=== PATIENT | female | born 1950 | race Caucasian/White ===

== ENCOUNTER 2021-04-16 18:28 | Inpatient (IN) | payer MEDICARE, OTHER ==
[~2021-04-16] VITALS: Ht 180.3 cm; Wt 112.0 kg
[2021-04-17 12:29] VITALS: BP 150/81
[2021-04-17] MEDS ORDERED: NYST15PO4 TP (12:37)
[2021-04-17] MEDS ORDERED: FURO-144 PO (12:37)
[2021-04-17] MEDS ORDERED: TOPI50TA24 PO (12:37)
[2021-04-17] MEDS ORDERED: LISI40TA13 PO (12:37)
[2021-04-17] MEDS ORDERED: RISP1TAB97 PO (12:37)
[2021-04-17] MEDS ORDERED: TEMA15CA PO (12:37)
[2021-04-17] MEDS ORDERED: FLUC150T PO (12:37)
[2021-04-17] MEDS ORDERED: POTA20TA83 PO (12:37)
[2021-04-17] MEDS ORDERED: OMEP20CA15 PO (12:37)
[2021-04-17] MEDS ORDERED: SIMV-46 PO (12:37)
[2021-04-17] MEDS ORDERED: WARF4TAB72 PO (12:37)
[2021-04-17] MEDS ORDERED: TRAM50TA2 PO (12:37)
[2021-04-17] MEDS ORDERED: WARF3TAB59 PO (12:37)
[2021-04-17] MEDS ORDERED: AMOX-430 PO (12:37)
[2021-04-17] MEDS ORDERED: MAGNESIUM HYDROXIDE 30 ML UDC PO PRN (13:00)
[2021-04-17] MEDS ORDERED: clonazePAM 0.5 MG TABLET PO PRN (13:00)
[2021-04-17] MEDS ORDERED: BLOOD SUGAR DIAGNOSTIC 1 EACH STRIP IN ONE (13:00)
[2021-04-17] MEDS ORDERED: MAG HYDROX/AL HYDROX/SIMETH 30 ML UDC PO PRN (13:00)
--- NOTE | 2021-04-17 13:00 | NUR ---
GPS/RN RECEIVED PT DIRECT ADMIT FROM [facility] ON 5150 FOR DTO. ORIGINALLY FOUND ON THE STREET. PT AMBULATES ON WHEEL CHAIR AND WEARING SPECIAL BOOT D/T RT ANKLE FX. PT DENIED SKIN BREAKDOWN BUT REFUSED SKIN ASSESSMENT. ON FACE TO FACE ASSESSMENT NO SI OR HI REPORTED. ADMITTING ORDERS FROM DR CROOKS RECEIVED AND CARRIED OUT. DR LOVE NOTIFIED OF ADMISSION VIA [employer]. NEW ORDERS FROM DR SANTOYO RECEIVED. PROPERTY CHECKED FOR CONTRABAND.
[2021-04-17 14:41] LABS: BILIRUBIN,TOTAL 0.2 mg/dL (0.2-1.0)
[2021-04-17 14:42] LABS: ALBUMIN 3.5 g/dL (3.4-5.0); CALCIUM, SERUM 8.7 mg/dL (8.5-10.1); POTASSIUM 3.9 mmol/L (3.5-5.1); TOTAL PROTEIN, SERUM 7.6 g/dL (6.4-8.2)
[2021-04-17 16:00] VITALS: BP 125/62
[2021-04-17] MEDS ORDERED: NYSTATIN TOP POWDER 15 GM BOTTLE TP PRN (17:00)
[2021-04-17] MEDS ORDERED: WARFARIN SODIUM 4 MG PO SCH (17:00)
[2021-04-17] MEDS ORDERED: WARFARIN SODIUM 2 MG TABLET PO ONE (18:00)
[2021-04-17] MEDS ORDERED: WARFARIN SODIUM 1 MG TABLET PO SCH (18:00)
[2021-04-17] MEDS: ACETAMINOPHEN 325 MG TABLET PO PRN (19:52)
[2021-04-17 20:15] VITALS: BP 130/92
[2021-04-17] MEDS: TEMAZEPAM 7.5 MG CAPSULE PO PRN (21:04)
[2021-04-17] MEDS: SIMVASTATIN 20 MG TABLET PO SCH (21:09)
[2021-04-18] MEDS: TRAMADOL HCL 50 MG TABLET PO PRN ×2 (00:47→11:59)
[2021-04-18] MEDS: ACETAMINOPHEN 325 MG TABLET PO PRN ×2 (04:12→16:36)
--- NOTE | 2021-04-18 05:55 | NUR ---
GPS HYDRO TECHNICIAN Note: Pt pleasant and compliant with her meds, cooperative, no signs of acute distress noted- intermittent sleep during shift- PRN pain meds given for c/o chronic R.Ankle/Knee pain- Tylenol (411) Ultram (46) ,and Restoril for insomnia given @2103-approx total of 5 hrs sleep, pt refused for head to toe skin assessment- verbalized she does not have any skin issue - aside for R.ankle/R knee - pain from previous surgery - needing foot brace on while ambulating- R. ankle is wrapped with papa bandage - pt refused to have it checked and remove bandage at this time- per Pt she will do it later in morning during shower. VSS , able to ambulate with aid of wheel chair and walker, all needs attended, and anticipated- continue to monitor pt's safety.
[2021-04-18 07:41] LABS: CHOLESTEROL 190 mg/dL (<200); HDL CHOLESTEROL 51 mg/dL (40-60); LDL 105 mg/dL (0-99); TRIGLYCERIDES 189 mg/dL (30-150)
[2021-04-18 08:00] VITALS: BP 115/67
[2021-04-18] MEDS: FUROSEMIDE 40 MG TABLET PO SCH (08:49)
[2021-04-18] MEDS: PANTOPRAZOLE 40 MG TABLET.DR PO SCH (08:49)
[2021-04-18] MEDS: POTASSIUM CHLORIDE 20 MEQ TAB.PRT.SR PO SCH (08:49)
[2021-04-18] MEDS: LISINOPRIL (20MG) 20 MG TABLET PO SCH (08:50)
[2021-04-18] MEDS: BENZTROPINE MESYLATE (1 MG) 1 MG TABLET PO SCH ×2 (09:00→16:36)
[2021-04-18] MEDS ORDERED: TOPIRAMATE 25 MG TABLET PO SCH (09:00)
[2021-04-18] MEDS ORDERED: FLUCONAZOLE 150 MG PO SCH (09:00)
[2021-04-18] MEDS: risperiDONE 1 MG TABLET PO SCH ×2 (11:59→16:32)
[2021-04-18] MEDS: TOPIRAMATE 25 MG TABLET PO SCH ×2 (12:00→21:44)
[2021-04-18 16:00] VITALS: BP 122/68
[2021-04-18] MEDS: WARFARIN SODIUM 1 MG TABLET PO SCH (16:34)
[2021-04-18 20:36] VITALS: BP 109/75
[2021-04-18 20:38] VITALS: BP 109/75
[2021-04-18] MEDS: SIMVASTATIN 20 MG TABLET PO SCH (21:45)
[2021-04-18] MEDS: TEMAZEPAM 7.5 MG CAPSULE PO PRN (21:59)
--- NOTE | 2021-04-18 22:01 | NUR ---
RN NOTE: INSOMNIA PATIENT STATED," I CAN'T SLEEP, I NEED MY SLEEPING PILL, I TAKE IT AT 1930 DAILY." PATIENT INSISTED ON TAKING SLEEPING MEDICINE AT THIS TIME. RESTORIL PRN 15 MG PO ADMINISTERED. WILL CONTINUE TO MONITOR.
--- NOTE | 2021-04-18 23:55 | NUR ---
RN NOTE PATIENT IS SLEEPING INTERMITTENTLY, PREFERS TO BE IN HER WHEELCHAIR MOST OF THE TIME. WHEN REMINDED THE PATIENT TO GO TO BED SINCE PATIENT WAS IN HER WHEELCHAIR FOR ABOUT 3 HOURS, PATIENT GOT AGITATED, LOUD, STARTED YELLING AT NURSE, USED INAPPROPRIATE LANGUAGE, STATED," I AM , I HAD OVER 120 CHILDREN BY A PHARMACIST WHO USED TO SELL STEM CELLS, HE SOLD STEM CELLS TO KAMAR LOAIZA & NATALY DURHAM. KAMAR LOAIZA WANTS MY KIDNEY, I WON'T GIVE MY ONLY KIDNEY TO ANYONE." PATIENT ALSO VERBALIZED," I HAVE PARANOIA." WHEN A FEMALE RN APPROACHED TO CALM THE PATIENT DOWN, PATIENT BECAME MORE AGITATED. THEN A MALE RN APPROACHED THE PATIENT & PATIENT DID CALM DOWN & STARTED SMILING, TALKATIVE TO THE MALE NURSE. SNACKS & FLUIDS WERE OFFERED & PATIENT TOLERATED WELL. PATIENT STILL PREFERRED TO STAY IN HER WHEELCHAIR & REFUSED TO GO TO BED BUT IS CALM & RELAXED AT THIS TIME. PATIENT REFUSED TO TAKE ANY6 MEDICATION WHEN ANTIANXIETY WAS OFFERED. WILL CONTINUE TO MONITOR.
[2021-04-19] MEDS: ACETAMINOPHEN 325 MG TABLET PO PRN ×2 (02:34→13:09)
--- NOTE | 2021-04-19 02:36 | NUR ---
RN NOTE: PAIN PATIENT C/O RIGHT ANKLE PAIN 10/08 & REQUESTED TO TAKE TYLENOL. PRN TYLENOL 650 MG PO ADMINISTERED.
[2021-04-19 08:00] VITALS: BP 147/60
[2021-04-19] MEDS: risperiDONE 1 MG TABLET PO SCH ×2 (08:04→17:06)
[2021-04-19] MEDS: TRAMADOL HCL 50 MG TABLET PO PRN (08:04)
[2021-04-19] MEDS: FUROSEMIDE 40 MG TABLET PO SCH (08:04)
[2021-04-19] MEDS: PANTOPRAZOLE 40 MG TABLET.DR PO SCH (08:04)
[2021-04-19] MEDS: LISINOPRIL (20MG) 20 MG TABLET PO SCH (08:04)
[2021-04-19] MEDS: POTASSIUM CHLORIDE 20 MEQ TAB.PRT.SR PO SCH (08:04)
[2021-04-19] MEDS: BENZTROPINE MESYLATE (1 MG) 1 MG TABLET PO SCH ×2 (08:05→17:00)
[2021-04-19] MEDS: TOPIRAMATE 25 MG TABLET PO SCH ×2 (08:10→21:20)
[2021-04-19 16:00] VITALS: BP 130/62
[2021-04-19] MEDS: WARFARIN SODIUM 1 MG TABLET PO SCH (17:07)
[2021-04-19 20:00] VITALS: BP 118/52
[2021-04-19] MEDS: SIMVASTATIN 20 MG TABLET PO SCH (21:20)
[2021-04-19] MEDS: TEMAZEPAM 7.5 MG CAPSULE PO PRN (21:25)
--- NOTE | 2021-04-19 21:28 | NUR ---
GPS RN NOTES: PATIENT REQUESTED SLEEP MEDICATION. RESTORIL 15MG GIVEN PO AT 2124. WILL CONTINUE TO MONITOR.
[2021-04-20] MEDS: ACETAMINOPHEN 325 MG TABLET PO PRN ×2 (01:24→23:42)
--- NOTE | 2021-04-20 01:28 | NUR ---
GPS RN NOTES: TYLENOL 650MG GIVEN PO AT 0124 FOR BACK PAIN. WILL CONTINUE TO MONITOR.
[2021-04-20 08:00] VITALS: BP 135/66
[2021-04-20] MEDS: PANTOPRAZOLE 40 MG TABLET.DR PO SCH (08:48)
[2021-04-20] MEDS: risperiDONE 1 MG TABLET PO SCH ×3 (08:55→16:27)
[2021-04-20] MEDS: TOPIRAMATE 25 MG TABLET PO SCH ×2 (08:55→20:50)
[2021-04-20] MEDS: POTASSIUM CHLORIDE 20 MEQ TAB.PRT.SR PO SCH (08:56)
[2021-04-20] MEDS: FUROSEMIDE 40 MG TABLET PO SCH (08:56)
[2021-04-20] MEDS: BENZTROPINE MESYLATE (1 MG) 1 MG TABLET PO SCH ×3 (08:56→16:25)
[2021-04-20] MEDS: LISINOPRIL (20MG) 20 MG TABLET PO SCH (09:03)
--- NOTE | 2021-04-20 09:04 | NUR ---
RN NOTE: MEDICATION REFUSAL PT REFUSED 0.5-1.5 RISPERDAL AND COGENTIN. STATES SHE HAS NOT BEEN TAKING THESE MEDICATIONS BECAUSE SHE HAS BEEN WITH 100 BABIES OF NATALY MARVA AND KAMAR LOAIZA. STATES SHE WILL NOT TAKE THESE MEDICATIONS WITHOUT THE DR. DISCUSSING IT WITH HER. 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 ATTEMPTED TO EDUCATE PT RE IMPORTANCE OF MEDICATION COMPLIANCE. PT CONT'D TO REFUSE X 3. WILL CONT TO MONITOR
--- NOTE | 2021-04-20 11:49 | NUR ---
LORELEI Initial Discharge Plan: Patient currently resides at [address] [place] [address]; ([phone]). Pt would want to return back home upon dc. LORELEI will work with the MD and pt to help coordinate appropriate discharge.
--- NOTE | 2021-04-20 14:38 | NUR ---
SW Family: SW contacted pt's niece Jennifer ([phone]) and left a detailed voicemail in regards to pt's discharge and treatment plan.
[2021-04-20 16:00] VITALS: BP 132/72
[2021-04-20] MEDS: WARFARIN SODIUM 1 MG TABLET PO SCH (16:29)
--- NOTE | 2021-04-20 16:33 | NUR ---
RN NOTE: MEDICATION REFUSAL PT REFUSED 1700 COGENTIN AND 0.5 MG OF 1.5 MG DOSE OF RISPERDAL. ATTEMPTED TO EDUCATE PT RE IMPORTANCE OF MEDICATION COMPLIANCE. PT CONT'D TO REFUSE X 3. PT CONT TO BELIEVE KAMAR LOAIZA AND NATALY DURHAM ARE THE FATHER OF HER CHILDREN.
[2021-04-20 19:54] VITALS: BP 118/63
[2021-04-20 20:04] VITALS: BP 118/63
[2021-04-20] MEDS: SIMVASTATIN 20 MG TABLET PO SCH (21:05)
[2021-04-20] MEDS: TEMAZEPAM 7.5 MG CAPSULE PO PRN (21:06)
--- NOTE | 2021-04-20 21:08 | NUR ---
RN NOTE: INSOMNIA PATIENT STATED," I NEED MY SLEEPING PILL, I TAKE IT EVERYDAY." PATIENT INSISTED ON TAKING SLEEPING MEDICINE AT THIS TIME. RESTORIL PRN 15 MG PO ADMINISTERED.
--- NOTE | 2021-04-20 23:44 | NUR ---
RN NOTE: PAIN PATIENT C/O RIGHT ANKLE PAIN 10/08 & REQUESTED TO TAKE TYLENOL. PRN TYLENOL 650 MG PO ADMINISTERED.
[2021-04-21] MEDS: TRAMADOL HCL 50 MG TABLET PO PRN (05:20)
--- NOTE | 2021-04-21 05:24 | NUR ---
RN NOTE: PAIN PATIENT C/O RIGHT KNEE PAIN 01/08, REQUESTED TO TAKE TRAMADOL. PRN TRAMADOL 50 MG PO ADMINISTERED.
[2021-04-21] MEDS: PANTOPRAZOLE 40 MG TABLET.DR PO SCH (07:43)
[2021-04-21 08:00] VITALS: BP 125/67
[2021-04-21] MEDS: LISINOPRIL (20MG) 20 MG TABLET PO SCH (08:52)
[2021-04-21] MEDS: TOPIRAMATE 25 MG TABLET PO SCH ×2 (08:53→21:25)
[2021-04-21] MEDS: FUROSEMIDE 40 MG TABLET PO SCH (08:53)
[2021-04-21] MEDS: POTASSIUM CHLORIDE 20 MEQ TAB.PRT.SR PO SCH (08:56)
[2021-04-21] MEDS: risperiDONE 1 MG TABLET PO SCH ×2 (09:00→16:35)
[2021-04-21] MEDS: BENZTROPINE MESYLATE (1 MG) 1 MG TABLET PO SCH (09:00)
--- NOTE | 2021-04-21 09:20 | NUR ---
PT REFUSED COGENTIN 1MG TAB STATING SHE NEVER TAKES COGENTIN. PT ALSO REFUSED ORDERED DOSE OF RISPERDAL 1.5MG. PT STATED ONLY NEEDING 1MG OF RISPERDAL INSTEAD OF 1.5 MG. NO RISPERDAL ADMINISTERED. PSYCHIATRIST WILL BE INFORMED.
[2021-04-21] MEDS ORDERED: WARFARIN SODIUM 5 MG TABLET PO SCH (09:30)
[2021-04-21] MEDS ORDERED: WARFARIN SODIUM 5 MG TABLET PO ONE (09:30)
--- NOTE | 2021-04-21 10:59 | NUR ---
LORELEI Family Contact: LORELEI contacted patient's ex Susan ([phone]) and he shared that pt is homeless and has been living on the streets and will need a SNF. Ex- stated that she is accusatory and paranoid. Addendum: 04/21/21 at 1105 by LORELEI MCKEON stated to not tell pt that this LORELEI contacted.
--- NOTE | 2021-04-21 11:31 | NUR ---
SW Note: SW discussed placement option with pt and she stated she would want a SNF near [place]. SW mentioned SNF near [place] called [facility] and pt was agreeable with this option.
--- NOTE | 2021-04-21 11:32 | NUR ---
SNF Referral: LORELEI faxed clinicals to Ed carcamo from [facility] ([phone]) for placement option. LORELEI faxed progress notes, H & P, and medication list.
--- NOTE | 2021-04-21 12:43 | NUR ---
SNF Contact: SW received a call from Ed carcamo from [facility] ([phone]) who stated pt is accepted.
[2021-04-21 16:00] VITALS: BP 120/65
[2021-04-21] MEDS: ACETAMINOPHEN 325 MG TABLET PO PRN (19:43)
--- NOTE | 2021-04-21 19:45 | NUR ---
RN NOTE: PAIN PATIENT C/O RIGHT ANKLE PAIN 10/08 & REQUESTED TO TAKE TYLENOL. PRN TYLENOL 650 MG PO ADMINISTERED. SNACK GIVEN TO THE PATIENT. WILL CONTINUE TO MONITOR.
[2021-04-21 20:00] VITALS: BP 117/63
[2021-04-21] MEDS: SIMVASTATIN 20 MG TABLET PO SCH (21:25)
[2021-04-21] MEDS: TEMAZEPAM 7.5 MG CAPSULE PO PRN (21:51)
--- NOTE | 2021-04-21 21:53 | NUR ---
RN NOTE: INSOMNIA PATIENT C/O INABILITY TO SLEEP & REQUESTED TO TAKE SLEEPING MEDICINE. RESTORIL PRN 15 MG PO ADMINISTERED.
[2021-04-22] MEDS: TRAMADOL HCL 50 MG TABLET PO PRN ×2 (03:45→13:22)
--- NOTE | 2021-04-22 03:48 | NUR ---
RN NOTE: PAIN PATIENT C/O RIGHT KNEE PAIN 5/10, REQUESTED TO TAKE TRAMADOL. PRN TRAMADOL 50 MG PO ADMINISTERED.
[2021-04-22] MEDS: PANTOPRAZOLE 40 MG TABLET.DR PO SCH (07:03)
[2021-04-22 08:00] VITALS: BP 144/94
[2021-04-22] MEDS: risperiDONE 1 MG TABLET PO SCH ×2 (09:25→16:29)
[2021-04-22] MEDS: POTASSIUM CHLORIDE 20 MEQ TAB.PRT.SR PO SCH (09:25)
[2021-04-22] MEDS: TOPIRAMATE 25 MG TABLET PO SCH ×2 (09:25→20:28)
[2021-04-22] MEDS: FUROSEMIDE 40 MG TABLET PO SCH (09:26)
[2021-04-22] MEDS: LISINOPRIL (20MG) 20 MG TABLET PO SCH (09:26)
--- NOTE | 2021-04-22 13:22 | NUR ---
RN NOTE: PAIN PT C/O 02/07 GENERALIZED PAIN. REQUESTING PAIN MEDICATION. MEDICATED WITH TRAMADOL PO PRN. WILL CONT TO MONITOR EFFECTIVENESS OF PRN MEDICATION
[2021-04-22 16:00] VITALS: BP 102/65
[2021-04-22] MEDS: WARFARIN SODIUM 1 MG TABLET PO SCH (16:33)
[2021-04-22 20:00] VITALS: BP 93/62
[2021-04-22] MEDS: ACETAMINOPHEN 325 MG TABLET PO PRN (20:05)
--- NOTE | 2021-04-22 20:13 | NUR ---
GPS RN NOTES: PATIENT C/O LOWER LEG PAIN. TYLENOL 650MG GIVEN PO AT 2004. WILL CONTINUE TO MONITOR.
[2021-04-22] MEDS: TEMAZEPAM 7.5 MG CAPSULE PO PRN (21:37)
[2021-04-22] MEDS: SIMVASTATIN 20 MG TABLET PO SCH (21:37)
--- NOTE | 2021-04-22 21:39 | NUR ---
GPS RN NOTES: PATIENT REQUESTED SLEEP MEDS. RESTORIL 15MG GIVEN PO AT 7. WILL CONTINUE TO MONITOR.
[2021-04-23] MEDS: TRAMADOL HCL 50 MG TABLET PO PRN ×2 (05:47→16:16)
--- NOTE | 2021-04-23 05:50 | NUR ---
GPS RN NOTES: Patient c/o generalized body pain. Tramadol 50mg given PO PRN at 0547. Will continue to monitor.
--- NOTE | 2021-04-23 07:25 | NUR ---
GPS RN CLOSING NOTES: PATIENT AWAKE, A/O X3, SITTING ON W/C. PATIENT SLEPT 7HR THIS SHIFT. PATIENT HAS NO S/S OF DISTRESS. RESPIRATION EVEN AND UNLABORED WITH EQUAL RISE AND FALL OF THE CHEST, ON ROOM AIR. ALL PATIENT CARE NEEDS HAVE BEEN MET ANTICIPATED. WILL CONTINUE TO MONITOR AND ENDORSE TO AM SHIFT.
[2021-04-23] MEDS: PANTOPRAZOLE 40 MG TABLET.DR PO SCH (07:42)
[2021-04-23 08:00] VITALS: BP 100/56
[2021-04-23] MEDS: ACETAMINOPHEN 325 MG TABLET PO PRN ×2 (08:41→20:41)
[2021-04-23] MEDS: LISINOPRIL (20MG) 20 MG TABLET PO SCH (08:42)
[2021-04-23] MEDS: POTASSIUM CHLORIDE 20 MEQ TAB.PRT.SR PO SCH (08:43)
[2021-04-23] MEDS: TOPIRAMATE 25 MG TABLET PO SCH ×2 (08:43→20:41)
[2021-04-23] MEDS: FUROSEMIDE 40 MG TABLET PO SCH (08:43)
[2021-04-23] MEDS: risperiDONE 1 MG TABLET PO SCH ×2 (08:43→16:18)
--- NOTE | 2021-04-23 08:45 | NUR ---
GPS RN NOTES: PATIENT C/O LOWER LEG PAIN. TYLENOL 650MG GIVEN PO AT 2005. WILL CONTINUE TO MONITOR Addendum: 04/23/21 at 1615 by KARLY TORRES RN FRANCO MATIAS NOTES:PREVIOUS TIME OF ADMINISTRATION ENTERED IN NOTE IS INCORRECT. PATIENT C/O LOWER LEG PAIN. TYLENOL 650MG GIVEN PO AT 0845. WILL CONTINUE TO MONITOR
--- NOTE | 2021-04-23 10:53 | NUR ---
Court Hearing: Patient's court hearing for 5250 was today and it was upheld for danger to self and GD.
[2021-04-23 16:00] VITALS: BP 140/60
--- NOTE | 2021-04-23 16:20 | NUR ---
GPS RN NOTES: Patient c/o generalized body pain. Tramadol 50mg given PO PRN. Will continue to monitor.
[2021-04-23] MEDS: WARFARIN SODIUM 1 MG TABLET PO SCH (17:28)
--- NOTE | 2021-04-23 17:40 | NUR ---
PT/INR VALUES FOR 04/23/21 NOT AVAILABLE PT REFUSED AM BLOOD DRAW, AND LAB WAS UNABLE TO DRAW ENOUGH BLOOD FOR READING THIS AFTERNOON. DR ANDRADE WAS CONTACTED AND MADE AWARE OF SITUATION. DR ANDRADE ORDERED TO GIVE THE 1700 COUMADIN DOSE OF 3MG EVEN THOUGH CURRENT VALUES WERE NOT AVAILABLE . 04/22/21 VALUES ENTERED.
[2021-04-23 20:13] VITALS: BP 144/69
[2021-04-23] MEDS: SIMVASTATIN 20 MG TABLET PO SCH (20:41)
[2021-04-23] MEDS: TEMAZEPAM 7.5 MG CAPSULE PO PRN (20:42)
[2021-04-24] MEDS: TRAMADOL HCL 50 MG TABLET PO PRN (03:21)
[2021-04-24 08:00] VITALS: BP 141/69
[2021-04-24] MEDS: ACETAMINOPHEN 325 MG TABLET PO PRN (08:42)
[2021-04-24] MEDS: PANTOPRAZOLE 40 MG TABLET.DR PO SCH (08:42)
[2021-04-24] MEDS: risperiDONE 1 MG TABLET PO SCH ×3 (08:42→21:29)
[2021-04-24] MEDS: TOPIRAMATE 25 MG TABLET PO SCH ×2 (08:43→21:29)
[2021-04-24] MEDS: FUROSEMIDE 40 MG TABLET PO SCH (08:44)
[2021-04-24] MEDS: POTASSIUM CHLORIDE 20 MEQ TAB.PRT.SR PO SCH (08:44)
[2021-04-24] MEDS: LISINOPRIL (20MG) 20 MG TABLET PO SCH (08:46)
--- NOTE | 2021-04-24 10:51 | NUR ---
LORELEI Family Contact: LORELEI spoke with patient's sister Celina ([phone]) and stated that she is calling and being verbally abusive. SW will notify pt's assigned nurse.
--- NOTE | 2021-04-24 13:48 | NUR ---
Individual Therapy: SW met with patient to conduct brief therapy on patient's presenting problem paranoia. Patient was unable to have a proper conversation and was inappropriate towards this SW. Patient was cursing and wanted to leave the hospital. SW unable to conduct therapy at this time.
[2021-04-24 16:00] VITALS: BP 117/64
[2021-04-24] MEDS: WARFARIN SODIUM 1 MG TABLET PO SCH (18:13)
[2021-04-24] MEDS ORDERED: NITROGLYCERIN 0.4 MG/TAB BOTTLE SL PRN (20:00)
[2021-04-24] MEDS ORDERED: SENNOSIDES 8.6 MG TABLET PO PRN (20:00)
[2021-04-24 20:03] VITALS: BP 159/81
[2021-04-24] MEDS: TEMAZEPAM 7.5 MG CAPSULE PO PRN (20:40)
[2021-04-24] MEDS: SIMVASTATIN 20 MG TABLET PO SCH (21:29)
--- NOTE | 2021-04-25 02:06 | NUR ---
GPS-RN NOTES: INCIDENT REPORT PATIENT WAS SITTING ON THE WHEELCHAIR AND HEARD PATIENT WAS CALLING FOR HELP. IMMEDIATELY WENT TO PT'S ROOM AND FOUND PATIENT SITTING ON THE FLOOR NEXT TO THE WHEELCHAIR. PER PATIENT, "I WENT TO THE TOILET, WHEN I WAS GOING BACK TO THE WHEELCHAIR, I JUST SLIPPED AND FELL ON THE FLOOR AND HIT MY HEAD BY THE LEFT SIDE OF THE WHEELCHAIR. PATIENT C/O PAIN ON HER HEAD AND LOWER LEGS ON A PAIN SCALE OF 7/10. SKIN BODY ASSESSMENT DONE, NO BRUISES NOTED, NO SKIN BREAKDOWN NOTED. 0200 - PAGED NoteSick ON-CALL FLOUR TESTER GRISELDA NOTIFIED OF THE INCIDENT WITH NEW ORDERS OF XRA Addendum: 04/25/21 at 0242 by GERALDO GARCIA RN X-RAY ON SKULL COMPLETE AND BILATERAL HIPS COMPLETE. V/S BP 142/80, R19, P72, T97.0, O2 SAT @97% ON ROOM AIR. NURSING SENIOR MANAGER QUALITY ASSURANCE MADE AWARE OF THE FALL INCIDENT. TRAMADOL GIVEN ORDERED FOR PAIN. SAFETY PRECAUTIONS IN PLACE. WILL CONTINUE TO MONITOR Q15MIN ROUNDS FOR SAFETY AND BEHAVIOR. Addendum: 04/25/21 at 0521 by GERALDO GARCIA RN CLARIFICATION OF THE ABOVE ORDERS: CT OF THE HEAD AND X-RAY OF BILATERAL HIPS. LEFT VOICE MESSAGE TO MARY MACEDO TONIA'S SISTER ([phone]). WILL ENDORSE TO AM SHIFT NURSE FOR CONTINUITY OF CARE.
[2021-04-25] MEDS: TRAMADOL HCL 50 MG TABLET PO PRN ×3 (02:18→23:53)
[2021-04-25 08:00] VITALS: BP 157/69
[2021-04-25] MEDS: risperiDONE 1 MG TABLET PO SCH ×3 (08:27→21:22)
[2021-04-25] MEDS: DOCUSATE SODIUM 100 MG CAPSULE PO SCH (08:27)
[2021-04-25] MEDS: PANTOPRAZOLE 40 MG TABLET.DR PO SCH (08:27)
[2021-04-25] MEDS: FUROSEMIDE 40 MG TABLET PO SCH (08:28)
[2021-04-25] MEDS: POTASSIUM CHLORIDE 20 MEQ TAB.PRT.SR PO SCH (08:28)
[2021-04-25] MEDS: LISINOPRIL (20MG) 20 MG TABLET PO SCH (08:28)
[2021-04-25] MEDS: TOPIRAMATE 25 MG TABLET PO SCH ×2 (08:28→21:22)
[2021-04-25] MEDS: ACETAMINOPHEN 325 MG TABLET PO PRN ×2 (09:58→17:30)
--- NOTE | 2021-04-25 11:34 | NUR ---
RN NOTES PHLEB TECH AT BEDSIDE, ABLE TO DRAW BLOOD FOR LAB.
--- NOTE | 2021-04-25 14:04 | NUR ---
RN NOTES PATIENT UP IN WHEELCHAIR FALLING ASLEEP. OFFERED BED TO PATIENT TO SLEEP ON SO SHE DOES NOT FALL OFF THE WHEELCHAIR IN CASE SHE SLEEPS BUT PATIENT INSISTED ON SITTING ON THE WHEELCHAIR TO SLEEP STATING "I'LL BE FINE". VERBAL CUES FOR SAFETY PROVIDED BUT PATIENT INSISTS TO BE ON WHEELCHAIR. WILL MONITOR ACCORDINGLY.
[2021-04-25 16:00] VITALS: BP 100/60
[2021-04-25] MEDS: WARFARIN SODIUM 1 MG TABLET PO SCH (16:29)
[2021-04-25 19:54] VITALS: BP 146/72
[2021-04-25 20:05] VITALS: BP 146/72
[2021-04-25] MEDS: SIMVASTATIN 20 MG TABLET PO SCH (21:30)
[2021-04-25] MEDS: TEMAZEPAM 7.5 MG CAPSULE PO PRN (21:37)
--- NOTE | 2021-04-25 21:38 | NUR ---
RN NOTE: INSOMNIA PATIENT C/O INABILITY TO SLEEP & INSISTED TO TAKE SLEEPING MEDICINE AT THIS TIME. RESTORIL PRN 15 MG PO ADMINISTERED. WILL CONTINUE TO MONITOR.
--- NOTE | 2021-04-25 23:58 | NUR ---
RN NOTE: PAIN PATIENT C/O RIGHT ANKLE PAIN 01/08, REQUESTED TO TAKE TRAMADOL. PRN TRAMADOL 50 MG PO ADMINISTERED. WILL CONTINUE PLAN OF CARE.
[2021-04-26] MEDS: ACETAMINOPHEN 325 MG TABLET PO PRN ×3 (05:13→22:11)
--- NOTE | 2021-04-26 05:15 | NUR ---
RN NOTE: PAIN PATIENT C/O RIGHT ANKLE PAIN 10/08 & REQUESTED TO TAKE TYLENOL. PRN TYLENOL 650 MG PO ADMINISTERED. WILL CONTINUE TO MONITOR.
--- NOTE | 2021-04-26 06:30 | NUR ---
RN NOTE: REFUSED LAB PATIENT REFUSED AM PT/INR LAB DESPITE OF RISKS & BENEFITS EXPLANATIONS.
[2021-04-26 08:00] VITALS: BP 100/56
[2021-04-26] MEDS: FUROSEMIDE 40 MG TABLET PO SCH (08:34)
[2021-04-26] MEDS: LISINOPRIL (20MG) 20 MG TABLET PO SCH (08:34)
[2021-04-26] MEDS: POTASSIUM CHLORIDE 20 MEQ TAB.PRT.SR PO SCH (08:34)
[2021-04-26] MEDS: risperiDONE 1 MG TABLET PO SCH ×4 (08:35→21:48)
[2021-04-26] MEDS: TOPIRAMATE 25 MG TABLET PO SCH ×2 (08:35→21:49)
[2021-04-26] MEDS: DOCUSATE SODIUM 100 MG CAPSULE PO SCH (08:35)
[2021-04-26] MEDS: PANTOPRAZOLE 40 MG TABLET.DR PO SCH (08:36)
--- NOTE | 2021-04-26 14:41 | NUR ---
GPS/RN PT REFUSED TYLENOL STATING: " THE PACKAGING IS WRONG DIRECTION.." MEDICATION WAS OPEN IN FRONT OF THE PATIENT. PT IS PARANOID,HYPERVERBAL AND NOT FOLLOWING THE DIRECTIONS.
[2021-04-26 16:00] VITALS: BP 115/68
[2021-04-26] MEDS: WARFARIN SODIUM 1 MG TABLET PO SCH (16:24)
[2021-04-26] MEDS: TRAMADOL HCL 50 MG TABLET PO PRN (17:26)
--- NOTE | 2021-04-26 18:59 | NUR ---
GPS/RN PT IS HYPERVERBAL, DEMANDING : " STAT CBC, BMP,MAGNESIUM, POTASSIUM AND CROSS AND MATCH IN PEDIATRIC TUBE" WILL ENDORSE TO IT CONSULTING MANAGER TO FOLLOW UP WITH [employer] GROUP COVERING CLINICIAN.
[2021-04-26 19:57] VITALS: BP 126/69
[2021-04-26] MEDS: SIMVASTATIN 20 MG TABLET PO SCH (21:49)
[2021-04-26] MEDS: TEMAZEPAM 7.5 MG CAPSULE PO PRN (21:52)
--- NOTE | 2021-04-26 21:53 | NUR ---
Pt c/o insomnia. Least restrictive measures ineffective. Restoril 15 mg 2 caps po prn given as ordered. Will continue to monitor.
--- NOTE | 2021-04-26 22:14 | NUR ---
Pt c/o bilateral knee pain 10/08. Tylenol 650 mg po prn given as ordered. Will continue to monitor.
--- NOTE | 2021-04-26 22:15 | NUR ---
Post 1 hr Restoril effective. Pt asleep in bed easy to arouse. Post 1 hr Tylenol effective. RI 0/10. Frequent visual check done. Will continue to monitor.
[2021-04-27 07:09] LABS: BASOPHILS % (AUTO) 0.8 % (0.0-2.0); EOSINOPHILS % (AUTO) 2.8 % (0.0-6.0); HEMATOCRIT 34 % (33-45); HEMOGLOBIN 11.3 g/dL (11.5-14.8); LYMPHOCYTES # (AUTO) 1.8 K/uL (0.8-4.8); LYMPHOCYTES % (AUTO) 38.5 % (20.0-44.0); MEAN CORPUSCULAR HGB CONC 34 g/dl (31.0-36.0); MEAN CORPUSCULAR VOLUME 98 fL (82-100); MONOCYTES # (AUTO) 0.5 K/uL (0.1-1.30); NEUTROPHILS # (AUTO) 2.2 K/uL (1.8-8.9); NEUTROPHILS % (AUTO) 47.9 % (43.0-81.0); PLATELET COUNT (AUTO) 227 K/uL (150-450); RED BLOOD CELL COUNT(AUTO) 3.42 MIL/uL (4.0-5.2); WHITE BLOOD COUNT (AUTO) 4.6 K/uL (4.3-11.0)
[2021-04-27] MEDS: TRAMADOL HCL 50 MG TABLET PO PRN ×2 (07:23→18:07)
--- NOTE | 2021-04-27 07:23 | NUR ---
RN NOTE: PAIN PT C/O 02/07 GENERALIZED PAIN. REQUESTING PAIN MEDICATION. MEDICATED WITH ULTRAM PO PRN.
[2021-04-27 08:00] VITALS: BP 143/75
[2021-04-27 08:14] LABS: CALCIUM, SERUM 9.3 mg/dL (8.5-10.1); CREATININE 0.8 mg/dL (0.6-1.3); MAGNESIUM 2.5 mg/dL (1.8-2.4); POTASSIUM 4.2 mmol/L (3.5-5.1)
[2021-04-27] MEDS: DOCUSATE SODIUM 100 MG CAPSULE PO SCH (08:17)
[2021-04-27] MEDS: PANTOPRAZOLE 40 MG TABLET.DR PO SCH (08:17)
[2021-04-27] MEDS: FUROSEMIDE 40 MG TABLET PO SCH (08:17)
[2021-04-27] MEDS: LISINOPRIL (20MG) 20 MG TABLET PO SCH (08:17)
[2021-04-27] MEDS: TOPIRAMATE 25 MG TABLET PO SCH ×2 (08:18→21:25)
[2021-04-27] MEDS: POTASSIUM CHLORIDE 20 MEQ TAB.PRT.SR PO SCH (08:18)
[2021-04-27] MEDS: risperiDONE 1 MG TABLET PO SCH ×4 (08:18→21:25)
--- NOTE | 2021-04-27 14:17 | NUR ---
RN NOTE: PAIN PT C/O 10/08 GENERALIZED PAIN. REQUESTING PAIN MEDICATION. MEDICATED WITH TYLENOL 650 MG PO PRN.
--- NOTE | 2021-04-27 15:42 | NUR ---
SW Note: SW attempted to discuss discharge with pt and pt was verbally abusive towards this brief writer and was being inappropriate. Pt was cursing at this SW while SW was giving pt options of nursing facility. Pt gave a phone number to call named Nilesh ([phone]) and stated will call Nilesh.
--- NOTE | 2021-04-27 15:43 | NUR ---
Friend Contact: SW contacted pt's friend Nilesh ([phone]) and left a voicemail.
[2021-04-27 16:00] VITALS: BP 143/78
[2021-04-27] MEDS: WARFARIN SODIUM 1 MG TABLET PO SCH (16:08)
--- NOTE | 2021-04-27 18:07 | NUR ---
RN NOTE: PAIN PT C/O 02/07 GENERALIZED PAIN. REQUESTING TRAMADOL PRN. TRAMADOL PO PRN ADMINISTERED
[2021-04-27 20:09] VITALS: BP 124/74
[2021-04-27] MEDS: SIMVASTATIN 20 MG TABLET PO SCH (21:25)
[2021-04-27] MEDS: ACETAMINOPHEN 325 MG TABLET PO PRN (21:25)
[2021-04-27] MEDS: TEMAZEPAM 7.5 MG CAPSULE PO PRN (22:10)
[2021-04-28] MEDS: ACETAMINOPHEN 325 MG TABLET PO PRN ×2 (02:47→20:51)
--- NOTE | 2021-04-28 02:54 | NUR ---
GPS RN NOTE, PATIENT HAS A COMPLAINT OF GENERALIZED BODY PAIN AT 4 OUT 10 ON THE PAIN SCALE AND IS REQUESTING TYLENOL AT THIS TIME. PATIENT VITAL SIGNS ARE STABLE. GAVE TYLENOL 650MG PO Q6HR PRN ORDERED. WILL REASSESS PAIN AND I WILL CONTINUE TO MONITOR THIS PATIENT WITH THE HELP OF STAFF.
[2021-04-28 08:00] VITALS: BP 102/59
[2021-04-28] MEDS: PANTOPRAZOLE 40 MG TABLET.DR PO SCH (08:12)
[2021-04-28] MEDS: risperiDONE 1 MG TABLET PO SCH ×4 (08:12→17:21)
[2021-04-28] MEDS: FUROSEMIDE 40 MG TABLET PO SCH (08:57)
[2021-04-28] MEDS: POTASSIUM CHLORIDE 20 MEQ TAB.PRT.SR PO SCH (08:57)
[2021-04-28] MEDS: DOCUSATE SODIUM 100 MG CAPSULE PO SCH (08:57)
[2021-04-28] MEDS: LISINOPRIL (20MG) 20 MG TABLET PO SCH (08:58)
[2021-04-28] MEDS: TOPIRAMATE 25 MG TABLET PO SCH ×2 (08:59→17:21)
[2021-04-28] MEDS ORDERED: WARFARIN SODIUM 5 MG TABLET PO ONE (10:00)
--- NOTE | 2021-04-28 11:03 | NUR ---
LORELEI Friend Contact: LORELEI contacted friend Bhavani ([phone]) and was unavailable. LORELEI attempted to leave a voicemail.
--- NOTE | 2021-04-28 13:14 | NUR ---
SW Note: SW met with patient to discuss discharge plan. SW stated that this SW has contacted family and friends and they are refusing to take care of pt and do not want to be responsible. SW mentioned this to pt and pt became inappropriate and was verbally abusive cursing this SW stating "you fucking bitch... little girl". SW attempted to discuss discharge planning and pt was uncooperative. SW stated she is accepted at [facility] and pt was not hearing this SW and was cursing this SW. SW notified Dr. Armenta to increase her medications.
[2021-04-28] MEDS: DIVALPROEX SODIUM 125 MG CAP.SPRINK PO SCH ×2 (14:30→17:00)
--- NOTE | 2021-04-28 15:05 | NUR ---
RN NOTE: MEDICATION REFUSAL DR. CROOKS STARTED PT ON DEPAKOTE. PT REFUSED INITIAL DOSE. PT YELLED AT STAFF, "I REFUSE TO TAKE DEPAKOTE. I GAINED 150 POUNDS ON DEPAKOTE" PT LABILE. YELLING AT STAFF AND OTHER PATIENTS. PT IS DELUSIONAL AND PARANOID. BELIEVES SHE HAS CHILDREN WITH KAMAR LOAIZA, THREATENING TO [employer] STAFF AND PATIENTS. 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
--- NOTE | 2021-04-28 15:21 | NUR ---
SW Family Contact: SW spoke with patient's sister Celina ([phone]) who stated that pt states that she has friends named Nilesh and Bhavani. Celina sister states that pt just meets homeless people on the streets and lies and says that they have a place for her to stay.
[2021-04-28 16:00] VITALS: BP 150/80
--- NOTE | 2021-04-28 17:49 | NUR ---
RN NOTE: DEPAKOTE AND RISPERDAL REFUSAL PT REFUSED 1700 DOSE RISPERDAL AND DEPAKOTE. ATTEMPTED TO EDUCATE PT RE IMPORTANCE OF MEDICATION COMPLIANCE. PT CONT'D TO REFUSE X 3. WILL CONT TO MONITOR
[2021-04-28 20:43] VITALS: BP 120/71
[2021-04-28] MEDS: TEMAZEPAM 7.5 MG CAPSULE PO PRN (20:51)
[2021-04-28] MEDS: SIMVASTATIN 20 MG TABLET PO SCH (20:51)
[2021-04-29] MEDS: ACETAMINOPHEN 325 MG TABLET PO PRN ×2 (06:23→15:49)
[2021-04-29 08:00] VITALS: BP 137/70
[2021-04-29] MEDS ORDERED: diphenhydrAMINE HCL 50 MG/ML VIAL IM STA (08:55)
[2021-04-29] MEDS ORDERED: LORAZEPAM INJ 2 MG/ML VIAL IM STA (08:55)
[2021-04-29] MEDS ORDERED: HALOPERIDOL LACTATE INJ 5 MG/ML VIAL IM STA (08:55)
--- NOTE | 2021-04-29 08:55 | NUR ---
pt. yelling out screaming,extremely agitated. called and given injection of benadryl,ativan and haldol.
[2021-04-29] MEDS: DIVALPROEX SODIUM 125 MG CAP.SPRINK PO SCH ×4 (09:00→18:24)
[2021-04-29] MEDS: risperiDONE 1 MG TABLET PO SCH ×3 (09:00→18:23)
[2021-04-29] MEDS: TOPIRAMATE 25 MG TABLET PO SCH ×3 (09:18→18:23)
[2021-04-29] MEDS: DOCUSATE SODIUM 100 MG CAPSULE PO SCH (09:19)
[2021-04-29] MEDS: LISINOPRIL (20MG) 20 MG TABLET PO SCH (09:19)
[2021-04-29] MEDS: PANTOPRAZOLE 40 MG TABLET.DR PO SCH (09:19)
[2021-04-29] MEDS: FUROSEMIDE 40 MG TABLET PO SCH (09:19)
[2021-04-29] MEDS: POTASSIUM CHLORIDE 20 MEQ TAB.PRT.SR PO SCH (09:19)
--- NOTE | 2021-04-29 09:30 | NUR ---
now yelling out for urine for drug screen.reassured that we have no order for urine.
--- NOTE | 2021-04-29 12:15 | NUR ---
extremely groggy at this time.
--- NOTE | 2021-04-29 15:55 | NUR ---
given tylenol 650 for leg and back pain.
[2021-04-29 16:00] VITALS: BP 110/72
[2021-04-29] MEDS: WARFARIN SODIUM 1 MG TABLET PO SCH (18:26)
[2021-04-29 20:00] VITALS: BP 121/55
[2021-04-29] MEDS: SIMVASTATIN 20 MG TABLET PO SCH (21:18)
[2021-04-29] MEDS: TEMAZEPAM 7.5 MG CAPSULE PO PRN (21:19)
--- NOTE | 2021-04-29 21:19 | NUR ---
GPS-RN NOTES: INSOMNIA PATIENT C/O INABILITY TO SLEEP. PRN RESTORIL 15MG PO ORDERED. WILL CONTINUE TO MONITOR.
[2021-04-30] MEDS: TRAMADOL HCL 50 MG TABLET PO PRN ×2 (03:24→21:36)
--- NOTE | 2021-04-30 03:24 | NUR ---
GPS-RN NOTES: PATIENT C/O GENERALIZED PAIN ON A PAIN SCALE OF 7/10. PRN TRAMADOL 50MG PO GIVEN ORDERED. WILL CONTINUE TO REASSESS.
[2021-04-30 08:00] VITALS: BP 106/69
[2021-04-30] MEDS: PANTOPRAZOLE 40 MG TABLET.DR PO SCH (08:25)
[2021-04-30] MEDS: TOPIRAMATE 25 MG TABLET PO SCH ×3 (08:25→16:25)
[2021-04-30] MEDS: DIVALPROEX SODIUM 125 MG CAP.SPRINK PO SCH ×3 (08:25→16:26)
[2021-04-30] MEDS: DOCUSATE SODIUM 100 MG CAPSULE PO SCH (08:25)
[2021-04-30] MEDS: risperiDONE 1 MG TABLET PO SCH ×3 (08:25→16:26)
[2021-04-30] MEDS: FUROSEMIDE 40 MG TABLET PO SCH (08:27)
[2021-04-30] MEDS: POTASSIUM CHLORIDE 20 MEQ TAB.PRT.SR PO SCH (08:27)
[2021-04-30] MEDS: LISINOPRIL (20MG) 20 MG TABLET PO SCH (08:27)
--- NOTE | 2021-04-30 09:00 | NUR ---
RN NOTE- RECEIVED PT. IN RM.QUIET,NO ACUTE DISTRESS,VS STABLE.WILL MONITOR Q 15 MINUTES FOR SAFETY AND BEHAVIOR.
[2021-04-30 16:00] VITALS: BP 119/67
[2021-04-30] MEDS: WARFARIN SODIUM 1 MG TABLET PO SCH (16:26)
[2021-04-30 20:00] VITALS: BP 123/59
[2021-04-30 20:15] VITALS: BP 123/59
[2021-04-30] MEDS: SIMVASTATIN 20 MG TABLET PO SCH (21:36)
--- NOTE | 2021-04-30 21:38 | NUR ---
RN NOTE: PAIN PATIENT C/O RIGHT ANKLE & RIGHT KNEE PAIN 01/08, REQUESTED TO TAKE TRAMADOL. PRN TRAMADOL 50 MG PO ADMINISTERED. WILL CONTINUE PLAN OF CARE.
[2021-04-30 22:00] VITALS: BP 123/59
[2021-04-30] MEDS: TEMAZEPAM 7.5 MG CAPSULE PO PRN (22:12)
--- NOTE | 2021-04-30 22:12 | NUR ---
RN NOTE: INSOMNIA PATIENT C/O INABILITY TO SLEEP & INSISTED TO TAKE SLEEPING MEDICINE RIGHT NOW. RESTORIL PRN 15 MG PO ADMINISTERED. WILL CONTINUE TO MONITOR.
[2021-05-01] MEDS: ACETAMINOPHEN 325 MG TABLET PO PRN (03:32)
--- NOTE | 2021-05-01 03:36 | NUR ---
RN NOTE: PAIN PATIENT C/O RIGHT ANKLE & RIGHT KNEE PAIN 10/08 & REQUESTED TO TAKE TYLENOL. PRN TYLENOL 650 MG PO ADMINISTERED. WILL CONTINUE TO MONITOR.
--- NOTE | 2021-05-01 06:42 | NUR ---
RN NOTE COVID 19 ANTIGEN SPECIMEN COLLECTED & SENT TO LAB.
--- NOTE | 2021-05-01 08:05 | NUR ---
SW Discharge Note: Patient will be discharged to fpc facility to [facility] [address] [place] [address]; . Please arrange Ambulance transportation for patient to be picked up at 2PM. Street Light Repairer spoke with LINDA, Program Dir at [facility]; ([phone], who stated patient will be accepted at facility today. Patient is alert and oriented x3, and is not able to plan for self-care at this time, but is willing to accept care provided for her at the facility. Patient denies any suicidal or homicidal ideations. Patient is aware and agreeable with discharge plans. Patient does not have any support at this time. Patient will continue to follow-up with her Psychiatrist Dr. Land[place] [address] [place] [address]; ([phone]) and [address] Dr. Melchor at [address], [place] [address]; ([phone]). Patient presents with euthymic mood and congruent mood. Patient refused to sign the homeless waiver upon discharge and a copy was placed in the chart. Homeless resources were provided and include [address] information line for shelters and homeless resources. A copy of all resources given to patient was also placed in the chart.
[2021-05-01] MEDS: PANTOPRAZOLE 40 MG TABLET.DR PO SCH (08:49)
[2021-05-01] MEDS: risperiDONE 1 MG TABLET PO SCH ×2 (08:59→12:05)
[2021-05-01] MEDS: FUROSEMIDE 40 MG TABLET PO SCH (09:01)
[2021-05-01] MEDS: DOCUSATE SODIUM 100 MG CAPSULE PO SCH (09:01)
[2021-05-01] MEDS: POTASSIUM CHLORIDE 20 MEQ TAB.PRT.SR PO SCH (09:01)
[2021-05-01] MEDS: TOPIRAMATE 25 MG TABLET PO SCH ×2 (09:01→12:05)
[2021-05-01] MEDS: DIVALPROEX SODIUM 125 MG CAP.SPRINK PO SCH (09:01)
[2021-05-01] MEDS: LISINOPRIL (20MG) 20 MG TABLET PO SCH (09:04)
[2021-05-01 10:04] VITALS: BP 148/75
--- NOTE | 2021-05-01 14:29 | NUR ---
RN DISCHARGED NOTES PATIENT HAD A DISCHARGE ORDER FROM DR. CROOKS,DR. ANDRADE MEDICALLY CLEARED PATIENT FOR DISCHARGE. PATIENT DID NOT VERBALIZE SI/HI,DENIES VISUAL/AUDITORY HALLUCINATIONS AT THE TIME OF DISCHARGE. PATIENT REFUSED FULL BODY ASSESSMENT PRIOR TO DISCHARGE. STREAMING MEDIA SPECIALIST OFFERED FLU VACCINE TO THE PATIENT BUT PATIENT STATED" I WILL GET IT IN OTHER PLACE". REPORT WAS GIVEN TO NATHANIEL ( CARDBOARD CUTTER).PATIENT WAS COAT FELLER BY AMBULANCE VIA GURNEY WITH TWO STAFF ASSIST. PATIENT LEFT THE UNIT WITH ALL HER BELONGINGS INCLUDING OWN WHEELCHAIR , OWN MEDICATIONS AND 7 OTHER BAGS. PATIENT LEFT THE UNIT AT 1415, IN STABLE CONDITION.NO FAMILY TO NOTIFY ON THE DISCHARGE.
== END 2021-05-01 14:15 | DRG 885 ==
LOC: GPS 04-17 11:42
PROVIDERS: ADMIT Psychiatry & Neurology Psychiatry; ATTEND Internal Medicine
DX: F31.64 Bipolar disorder, current episode mixed, severe, with psychotic features (principal); F23 Brief psychotic disorder; D68.61 Antiphospholipid syndrome; L03.115 Cellulitis of right lower limb; F41.9 Anxiety disorder, unspecified; E66.9 Obesity, unspecified; E78.5 Hyperlipidemia, unspecified; I10 Essential (primary) hypertension; Z79.899 Other long term (current) drug therapy; Z68.34 Body mass index [BMI] 34.0-34.9, adult; Z20.822 Contact with and (suspected) exposure to COVID-19
CPT/HCPCS: 36415; 70450-TC; 73521; 80048-TC; 80053-TC; 80061-TC; 82962-TC; 83735-TC; 85025-TC; 85610-TC; 87081-TC; 97116-TC; 97530-TC; J1200; J1630; J2060